=== PATIENT | female | born 1985 | race Asian ===

== ENCOUNTER → 2017-12-31 | Outpatient (CLI) | payer OTHER ==
[~2017-12-31] MED LIST: AMOX500T2 PO
--- NOTE | 2017-12-31 12:59 | Diagnostic Imaging Report ---
PROCEDURE: US Non-ob pelvis comp/trans. TECHNIQUE: Multiple realtime grayscale images were obtained of the pelvis in various projections endovaginally. Transabdominal imaging was also performed. INDICATION: Pelvic pain. FINDINGS: The uterus measures 6.9 x 5.2 x 4.4 cm. The endometrium is approximately 7 mm in thickness. No myometrial mass is identified. The right ovary measures 3.2 x 1.8 x 1.6 cm and the left ovary measures 4.7 x 3.1 x 2.2 cm. The right ovary contains small follicles. The left ovary demonstrates partially collapsed complex cyst measuring 2.5 x 1.8 x 1.8 cm. There is blood flow to both ovaries. Small amount of free fluid in the left adnexa is seen. IMPRESSION: Partially collapsed 2.5 cm left ovarian cyst and minimal free fluid. The study is otherwise unremarkable. Dictated by: Dictated on workstation # [id number]
== END ==
LOC: RAD 11:29
PROVIDERS: ATTEND Nurse Practitioner Family
DX: N83.292 Other ovarian cyst, left side (principal)
CPT/HCPCS: 76830; 76856

== ENCOUNTER → 2018-01-10 | Outpatient (CLI) | payer OTHER | LOC: PREOP 05:37 | PROVIDERS: ATTEND Surgery | DX: Z01.818 Encounter for other preprocedural examination (principal); K62.5 Hemorrhage of anus and rectum ==